=== PATIENT | male | born 1945 | race Caucasian/White ===

== ENCOUNTER → 2016-09-04 | Outpatient (CLI) | payer OTHER, BC ==
[~2016-09-04] VITALS: Ht 172.7 cm; Wt 81.6 kg
[~2016-09-04] MED LIST: ASPIR 8181 M1 PO; CELEXA20 MG PO; FISH OIL 1,001000 M2 PO; LEVOTHYROXIN0.088 MG PO; LEVOTHYROXINE100 MCG PO; LIPITOR80 MG PO; NAMZARIC 28 MG1 EACH PO; NITROGLYCERIN0.4 MG SUBLING; OMEPRAZOLE40 MG PO
--- NOTE | ~2016-09-04 | S ---
[facility] [place] [address] SURGICAL PATH RPT PROCEDURE Name: Barbara ACEVEDO Room #: REG [facility]..#: [id number] Admission: 09/04/16 Date of : 41 Discharge: Report #: [id number] Path Case #: [id number] PATHOLOGY REPORT COLLECTION DATE: 09/04/2016 RECEIVED DATE: 09/04/2016 SUBMITTING PHYS: Dr. Nabeel Muse OTHER PHYS: SPECIMEN(S) RECEIVED: A.Gastric bx * * * * * * * * * * * * FINAL DIAGNOSIS: "Gastric BX", biopsy: - Gastric antral type mucosa with reactive gastropathy and mild chronic inflammation. - Negative H. pylori immunohistochemical stain (block A1); control reacted appropriately. (CLW:pit; 09/06/2016) PATHOLOGIST: Carolyne Gamez M.D. REPORT ELECTRONICALLY SIGNED BY: Carolyne Gamez M.D. DATE/TIME: 09/06/2016 13:50 * * * * * * * * * * * * GROSS PATHOLOGY: Received in formalin labeled "Herbert Acevedo, gastric BX," are 4 segments of gerber soft tissue measuring 1.0 x 0.3 x 0.2 cm in aggregate dimensions and ranging from 0.2 to 0.3 cm in maximum dimension. The specimen is submitted entirely in cassette A1. (DAFNE; 09/05/2016) CLINICAL HISTORY: Dysphasia INITIAL CPT CODE(S): A; 56762, 45272 Professional services performed by [facility] at [facility] [address] [place] [address] Technical services performed by [facility] at [address] [place] [address]. [facility] [address] [place] [address] SURGICAL PATH RPT PROCEDURE Name: Barbara ACEVEDO Room #: REG MARGARET [facility]aver#: [id number] Admission: 09/04/16 Date of : 41 Discharge: Report #: [id number] Path Case #: [id number] [address] PHONE: [phone] DIRECTOR: Zeus Martinez M.D. * * * END OF REPORT * * *
== END | disposition home or self-care (01) ==
LOC: GI 09:53
DX: K29.50 Unspecified chronic gastritis without bleeding (principal); K44.9 Diaphragmatic hernia without obstruction or gangrene; I10 Essential (primary) hypertension; I25.10 Atherosclerotic heart disease of native coronary artery without angina pectoris; I25.2 Old myocardial infarction; K21.9 Gastro-esophageal reflux disease without esophagitis; F32.89 Other specified depressive episodes; E78.00 Pure hypercholesterolemia, unspecified; E03.9 Hypothyroidism, unspecified; F41.8 Other specified anxiety disorders; Z79.82 Long term (current) use of aspirin; Z87.891 Personal history of nicotine dependence; Z95.5 Presence of coronary angioplasty implant and graft; Z98.890 Other specified postprocedural states; Z79.899 Other long term (current) drug therapy
CPT/HCPCS: 62110; 62900

== ENCOUNTER → 2018-04-14 | Outpatient (CLI) | payer OTHER, BC | LOC: RAD 12:52 | DX: J98.11 Atelectasis (principal); M47.814 Spondylosis without myelopathy or radiculopathy, thoracic region ==

== ENCOUNTER → 2019-06-14 | Outpatient (CLI) | payer OTHER, BC | LOC: SJCVC 14:08 → SJCVCIMAG 14:08 | DX: I08.1 Rheumatic disorders of both mitral and tricuspid valves (principal); R94.31 Abnormal electrocardiogram [ECG] [EKG]; I21.29 ST elevation (STEMI) myocardial infarction involving other sites; I44.0 Atrioventricular block, first degree; I25.10 Atherosclerotic heart disease of native coronary artery without angina pectoris; E78.00 Pure hypercholesterolemia, unspecified; I65.22 Occlusion and stenosis of left carotid artery; I10 Essential (primary) hypertension; Z79.899 Other long term (current) drug therapy; Z87.891 Personal history of nicotine dependence ==

== ENCOUNTER → 2019-06-17 | Outpatient (CLI) | payer OTHER, BC | LOC: SJCVCIMAG 08:46 | DX: I25.5 Ischemic cardiomyopathy (principal); I25.89 Other forms of chronic ischemic heart disease; R06.00 Dyspnea, unspecified; I25.10 Atherosclerotic heart disease of native coronary artery without angina pectoris; Z79.82 Long term (current) use of aspirin; Z79.899 Other long term (current) drug therapy ==

== ENCOUNTER 2019-06-24 06:20 | Observation (INO) | payer OTHER, BC ==
[2019-06-24] VITALS (14 sets, daily range): BP systolic 130–179; BP diastolic 48–84
[~2019-06-24] VITALS: Ht 172.7 cm; Wt 88.5 kg
[2019-06-24 07:12] LABS: HEMATOCRIT 42.4 % (42.0-52.0); HEMOGLOBIN 14.1 gm/dL (14.0-18.0); MCH 29.4 pg (26.0-34.0); MCHC 33.2 g/dL (28.0-37.0); MCV 88.6 fL (80.0-100.0); RBC 4.79 mil/uL (4.50-6.00); RDW 14.6 % (10.5-14.5); WBC 9.4 thou/uL (4.0-11.0)
[2019-06-24 07:20] LABS: CALCIUM 8.3 mg/dL (8.5-10.1); POTASSIUM 4.1 mmol/L (3.5-5.1)
--- NOTE | 2019-06-24 08:15 | EKG ---
[facility] [address] [address] [address] ELECTROCARDIOGRAM REPORT Name: JANA ACEVEDO Room #: REG [facility] Jayme.#: [id number] Admission: 06/24/19 Attend Phys: Hamzah Hahn MD, Discharge: Date of : 41 Report #: [id number] THIS REPORT FOR: cc: Roman Kramer,Jerry Gonzalez MD [facility] ~ THIS REPORT FOR: //name// [facility] Test Date: 2019-06-24 Test Time: 07:26:06 Pat Name: JANA ACEVEDO Department: Room: Gender: [employer] Consultant: Melissa GARCIA : 1945 Requested By: Hamzah Hahn Order Number: [id number] MD: Jerry Zarate Measurements Intervals Spearman Rate: 46 P: 38 WI: 238 QRS: -10 QRSD: 103 T: 59 QT: 480 QTc: 420 Interpretive Statements Sinus bradycardia Prolonged WI interval Anterior infarct, old No previous ECG available for comparison Electronically Signed On 06-24-2019 7:46:07 CDT by Jerry Zarate [email or web address] <ELECTRONICALLY SIGNED> By: Jerry Zarate MD, FACC 06/24/1948 5 5 Jerry Zarate MD, [facility] /EPI
--- NOTE | 2019-06-24 16:49 | CATHLAB ---
[facility] [address] [place] [address] INVASIVE PROCEDURE REPORT Name: JANA ACEVEDO Room #: 213-P ADM Celia M.R.#: [id number] Admission: 06/24/19 Attend Phys: Hamzah Hahn MD, Discharge: Date of : 41 Report #: [id number] THIS REPORT FOR: cc: Roman Kramer,Hamzah Chamorro MD [facility] ~ APPROVED REPORT Study performed: 06/24/2019 07:53:05 Patient Details Patient Status: Out-Patient Room #: The patient is a 73 year-old male Event Personnel Hamzah Hahn Bung Sewer, Damian Fontana RTR Monitor, Portia Merida RTR, WILVER Scrub,, Adriana Muse RN crm campaign manager Performed Art Access - R femoral artery* Left Heart Cath w/or w/o Coronaries 4310215 [facility] Aortogram Abdominal Peripheral Angio 554662 Renal Bilateral Peripheral Angiography 1109993 CVRENALBIL WENDI Place w/wo Plasty Single LAD 683816 60298 Initial Mod Sed Same Phys/QHP Gr5y 200735 34924 Mod Sed Same Phys/QHP Ea 201465 Indication Chest pain Procedure Narrative The Right Groin^ was infiltrated with 1% Lidocaine subcutaneous anesthesia. A PINNACLE 6FR Sheath #[id number] sheath was inserted into the RFA^. Coronary angiography was performed using coronary diagnostic catheters. The right coronary system was accessed and visualized with a JR4 catheter. The left coronary system was accessed and visualized with a JL5 catheter. The left ventricle was accessed and visualized with a PIGTAIL catheter. Left ventriculogram was performed in 30 degree projection. An aortogram of the abdominal aorta was performed. Pre-demployment femoral angiogram was performed . Closure device was deployed with a 6 Fr MYNX CONTROL 6F/7F L#[id number]. Hemostasis was obtained with manual pressure following sheath removal without any complications. The patient tolerated the procedure well and there were no complications associated with the procedure. There was no hematoma. [address] [address] INVASIVE PROCEDURE REPORT Name: JANA ACEVEDO ROSALIA Room #: 213-P [facility] [place] ..#: [id number] Admission: 06/24/19 Attend Phys: Hamzah Hahn, Discharge: Date of : 41 Report #: [id number] Intraoperative Conscious Sedation Sedation start time: 829 Case end Time: 931 Fentanyl 50 mcg Versed 1 mg Fluoro Time: 6.05 minutes Dose: DAP 7234.80 cGycm2 155 mGy Contrast Type and Amount: Omnipaque 155 ml Hemodynamics The aortic pressure is 151/67 mmHg with a mean of 42 mmHg. The left ventricular pressure is 131/12 mmHg with a mean of mmHg. The left ventricular end diastolic pressure is 34 mmHg. PCI Technique Lesion Percutaneous coronary intervention was performed on the Unspecified. A LAUNCHER 6FR EBU 4 #[id number] Guide Catheter was used to engage the ostium. A Luge Wire .014 x 182CM #[id number] Interventional Guidewire was used to cross the lesion. BALLOON DILATION A Balloon catheter Sprinter OTW 2.5 x 12 #[id number] was inserted and inflated up to 14.00atm for 19seconds. STENT DEPLOYMENT A drug-eluting stent XIENCE BRITNEY RX 2.75 X 8 #[id number] was inserted and inflated up to 18.00atm for 24seconds. POST STENT DEPLOYMENT BALLOON DILATION A Balloon catheter TREK NC OTW 3.0 X 8 #[id number] was inserted and inflated up to 18.00atm for 32seconds. Additional Inflation: 20.00atm for 19seconds. Conclusion #1. Successful PTCA stent of a proximal LAD partial in-stent restenosis just at the septal information developer 80% then giving rise to another stent and a diagonal stent which has 50 to 60% in-stent restenosis in the mid LAD and the ostial diagonal. 2.75 x 8 Xience Britney postdilated with a 3 oh noncompliant balloon to 3.1 mm AVILA grade III flow no dissection or thrombus formation #2 left main mild disease giving rise to LAD and circumflex #3 circumflex OM is a codominant system high rising OM branch with an eccentric 60 to 70% lesion second OM mild disease circumflex is large and AV groove in the distal PDA KB patent #4's smaller but codominant RCA giving rise to a small PDA. Predominantly a left dominant system 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 Brisk flow will evaluate noninvasively. Recommendations and plan: Continue aggressive risk factor modification. Dual antiplatelet therapy has been initiated. Patient is pain-free with resolution of EKG upon transfer back to CCU. Follow post stent protocol. <ELECTRONICALLY SIGNED> By: Hamzah Hahn MD, [facility] 06/24/191646 46 46 Hamzah Hahn MD, FACC /INF
--- NOTE | 2019-06-24 16:51 | NUR ---
PT. RESTING IN HIS ROOM WITH EYES CLOSED, AWOKE FOR ASSESSMENT. CALM, DENIES A NEED FOP PAIN MEDICATION FOR GROIN DISCOMFORT. GROIN SITE CONTINUES TO BE CLEAN, DRY AND INTACT WITH NO OOZING NOR ANY SIGN'S OF A HEMATOMA. DITAL PULSES INTACT BILATERALLY 2+. PT. DENIES CHEST PAIN NOR AN SHORTNESS OF BREATH. WILL CONTINUE TO MONITOR. IV IS CLEAN DRY AND INTACT AND SALINE LOCKED, FLUSHES EASILY NO SIGN'S OF INFILTRATION.
--- NOTE | 2019-06-24 17:20 | NUR ---
PT REPORTED SOA UPON ARRIVAL THIS SHIFT. ORDERS FOR CXR AND LASIX RECEIVED FROM CV INSURANCE INSPECTOR. SINCE DIURESIS HAS BEGAN PT DENIES SOA. POST CATH VS HAVE BEEN WITHIN NORMAL LIMITS AT ALL TIMES.
[2019-06-25 00:08] VITALS: BP 123/57
--- NOTE | 2019-06-25 02:47 | NUR ---
PT C/O SOA,ON ASSESSMENT PT STRUGGLING TO CATCH BREATH.VSS.O2 SAT 96% ON RA.DENIES CHEST PAIN.LUNG SOUNDS WHEEZING NOTED.O2 AT 2LITERS APPLIED FOR COMFORT.DR HOLDEN NOTIFIED ORDERS GIVEN TO GIVE NEB TX AND DO EKG.NO CHANGES ON EKG.PT VOICED RELIEF AFTER NEB TX.PT NOW SOB WITH ACTIVITIES BUT RECOVERS EASILY WITH REST.RIGHT GROIN INTACT S/P CARDIAC JANNIE.NO OTHER CONCERNS VOICED AT THIS TIME.WILL CONT TO MONITOR PER POC.
[2019-06-25 03:30] VITALS: BP 127/69
[2019-06-25 04:00] VITALS: BP 127/69
[2019-06-25 04:38] LABS: HEMATOCRIT 38.9 % (42.0-52.0); HEMOGLOBIN 12.8 gm/dL (14.0-18.0); MCH 29.2 pg (26.0-34.0); MCV 88.5 fL (80.0-100.0); RBC 4.4 mil/uL (4.50-6.00); RDW 14.6 % (10.5-14.5); WBC 9.3 thou/uL (4.0-11.0)
[2019-06-25 05:03] LABS: ALBUMIN 2.9 g/dL (3.4-5.0); ANION GAP 5 mmol/L (7-16); BUN 14 mg/dL (7-18); CALCIUM 8.2 mg/dL (8.5-10.1); CHLORIDE 104 mmol/L (98-107); CO2 34 mmol/L (21-32); CREATININE 1.1 mg/dL (0.7-1.3); GLUCOSE 102 mg/dL (74-106); SGOT 20 U/L (15-37); SGPT 22 U/L (30-65); SODIUM 143 mmol/L (136-145); TOTAL BILIRUBIN 0.6 mg/dL (<0.1-1.0); TROPONIN-I <0.06 ng/mL (<0.06)
[2019-06-25 07:15] VITALS: BP 139/69
[2019-06-25] MEDS ORDERED: EFFIENT10 MG PO (07:37)
[2019-06-25] MEDS ORDERED: BENICAR40 MG PO (07:53)
[2019-06-25 11:12] VITALS: BP 139/69
--- NOTE | 2019-06-25 11:45 | NUR ---
ASSUMED CARE OF PT AT SHIFT CHANGE. ASSESSMENT CHARTED. MEDS GIVEN PER MAY. PT A&OX4, NO C/O PAIN. GROIN SITE CDI, REMAINS SOFT WITH NO HEMATOMA. DISCHARGE ORDERS AND INSTRUCTIONS COMPLETE. TELE AND IV DC'D. WALKED PT TO MAIN ENTRANCE TO WAITING PERSONAL CAR.
[2019-06-25 12:38] VITALS: BP 139/69
--- NOTE | 2019-06-26 11:49 | EKG ---
[facility] [place] [address] ELECTROCARDIOGRAM REPORT Name: JANA ACEVEDO Room #: 213-[facility] M.R.#: [id number] Admission: 06/24/19 Attend Phys: Hamzah Hahn MD, Discharge: 06/25/19 Date of : 41 Report #: [id number] THIS REPORT FOR: cc: Roman Kramer Steven F. DO Couchonnal, Luis F. 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
--- NOTE | 2019-06-26 11:53 | EKG ---
[facility] [place] [address] ELECTROCARDIOGRAM REPORT Name: JANA ACEVEDO Room #: 213-[facility] M.R.#: [id number] Admission: 06/24/19 Attend Phys: Hamzah Hahn MD, Discharge: 06/25/19 Date of : 41 Report #: [id number] THIS REPORT FOR: cc: Roman Kramer Steven F. DO Couchonnal, Luis F. MD ~ THIS REPORT FOR: //name// [facility] Test Date: 2019-06-25 Test Time: 08:02:52 Pat Name: JANA ACEVEDO Department: Room: 213 P Gender: M Car Body Mechanic: TOMMY : 1945 Requested By: Hamzah Hahn Order Number: [id number] MD: Ronnie Claire Measurements Intervals Freeman Rate: 66 P: 23 WI: 231 QRS: -23 QRSD: 95 T: 31 QT: 430 QTc: 451 Interpretive Statements Sinus rhythm Prolonged WI interval Borderline left axis deviation Anterior infarct, old Compared to ECG 06/24/2019 07:26:06 Sinus bradycardia no longer present Myocardial infarct finding still present Electronically Signed On 06-26-2019 11:51:20 CDT by Ronnie Claire [email or web address] <ELECTRONICALLY SIGNED> By: Ronnie Claire MD 06/26/19 1151 1 1 Ronnie Claire MD /EPI
== END 2019-06-25 11:38 | disposition home or self-care (01) ==
LOC: CATH 06:20 → 2N 10:23
PROVIDERS: ADMIT Internal Medicine Cardiovascular Disease
DX: I25.10 Atherosclerotic heart disease of native coronary artery without angina pectoris (principal); I25.5 Ischemic cardiomyopathy; I10 Essential (primary) hypertension; E78.5 Hyperlipidemia, unspecified; E78.00 Pure hypercholesterolemia, unspecified

== ENCOUNTER → 2019-11-09 | Outpatient (CLI) | payer OTHER, BC ==
[~2019-11-09] MED LIST changes: +BENICAR40 MG PO; +EFFIENT10 MG PO
== END ==
LOC: SJCVC 14:11
PROVIDERS: ATTEND Internal Medicine Cardiovascular Disease
DX: I25.10 Atherosclerotic heart disease of native coronary artery without angina pectoris (principal); R94.31 Abnormal electrocardiogram [ECG] [EKG]; I10 Essential (primary) hypertension; E78.00 Pure hypercholesterolemia, unspecified; I65.22 Occlusion and stenosis of left carotid artery; Z79.899 Other long term (current) drug therapy; Z87.891 Personal history of nicotine dependence

== ENCOUNTER → 2020-06-15 | Outpatient (CLI) | payer OTHER, BC | LOC: SJCVCIMAG 07:36 | PROVIDERS: ATTEND Internal Medicine Cardiovascular Disease | DX: I65.23 Occlusion and stenosis of bilateral carotid arteries (principal); I08.3 Combined rheumatic disorders of mitral, aortic and tricuspid valves; I77.89 Other specified disorders of arteries and arterioles; I25.10 Atherosclerotic heart disease of native coronary artery without angina pectoris; I49.3 Ventricular premature depolarization; I10 Essential (primary) hypertension; E78.00 Pure hypercholesterolemia, unspecified; I25.5 Ischemic cardiomyopathy; Z79.82 Long term (current) use of aspirin; Z79.899 Other long term (current) drug therapy; Z87.891 Personal history of nicotine dependence ==

== ENCOUNTER → 2021-04-03 | Outpatient (CLI) | payer OTHER, BC | LOC: SJCVCIMAG 14:18 | PROVIDERS: ATTEND Internal Medicine Cardiovascular Disease | DX: I65.23 Occlusion and stenosis of bilateral carotid arteries (principal); R94.31 Abnormal electrocardiogram [ECG] [EKG]; I25.10 Atherosclerotic heart disease of native coronary artery without angina pectoris; I10 Essential (primary) hypertension; E78.00 Pure hypercholesterolemia, unspecified; I25.5 Ischemic cardiomyopathy; R00.1 Bradycardia, unspecified; I77.9 Disorder of arteries and arterioles, unspecified; F32.A Depression, unspecified; Z87.891 Personal history of nicotine dependence; Z72.89 Other problems related to lifestyle; Z79.82 Long term (current) use of aspirin; Z79.899 Other long term (current) drug therapy ==